=== PATIENT | female | born 1955 | race Caucasian/White ===

== ENCOUNTER 2021-02-10 16:47 | Emergency (ER) | payer MEDICAID, SELFPAY ==
[2021-02-10 16:49] VITALS: BP 180/90; PULSE 102; RESP 18; TEMP 37; O2SAT 95; BMI 25.0
--- NOTE | 2021-02-10 16:59 | ECG_ITS ---
[facility] Test Date: 2021-02-10 Pat Name: Lauren Mcmanus Department: Room: Gender: Female Rn Recruitment: : 1955 Requested By: Jl Morris Order Number: [id number] Paddy MD: Henry Good M.D. Measurements Intervals [place] Rate: 101 P: [place]: QRS: 88 QRSD: 85 T: 70 QT: 350 QTc: 455 Interpretive Statements Sinus TACHYCARDIA WITH A HEART RATE OF 101 BPM ABNORMAL RHYTHM ECG INTERPRETATION BASED ON A DEFAULT AGE OF 40 YEARS No previous ECG available for comparison Electronically Signed On 02-11-2021 14:40:30 CDT by Henry Good M.D. [id number]
--- NOTE | 2021-02-10 16:59 | CTR_ITS ---
PROCEDURE INFORMATION: Exam: CT Head Without Contrast Exam date and time: 02/10/2021 4:59 PM Age: 65 years old Clinical indication: Altered mental status/memory loss and other: PT stopped talking; Patient HX: PT has breast cancer and has recently stopped her chemo. ; Additional info: Headache TECHNIQUE: Imaging protocol: Computed tomography of the head without contrast. Radiation optimization: All CT scans at this facility use at least one of these dose optimization techniques: automated exposure control; mA and/or kV adjustment per patient size (includes targeted exams where dose is matched to clinical indication); or iterative reconstruction. COMPARISON: No relevant prior studies available. RADIATION DOSE METRICS: Total DLP (mGy-cm): 776.02 FINDINGS: Brain: Numerous targetoid lesions with surrounding vasogenic edema within the bilateral cerebellar hemispheres, left temporal lobe, right parietal lobe, left parietal lobe, and bilateral frontal lobes. No mass effect, midline shift, or brain herniation. Mild hypodensities in supratentorial periventricular and subcortical white matter, consistent with microangiopathy. No intracranial hemorrhage. No hyperdense artery. Cerebral ventricles: No ventriculomegaly. Paranasal sinuses: Visualized sinuses are unremarkable. No fluid levels. Mastoid air cells: Visualized mastoid air cells are well aerated. Bones/joints: Unremarkable. No acute fracture. Soft tissues: Unremarkable. CT/CT head wo con* [id number] IMPRESSION: 1. Numerous lesions within the cerebellum and bilateral cerebral hemispheres with surrounding vasogenic edema. This is consistent with metastatic breast cancer. Radiation Dose CTDIVOL = (mGy): DLP = 776.02 (mGy-cm)
--- NOTE | 2021-02-10 17:01 | CTR_ITS ---
PROCEDURE INFORMATION: Exam: CT Chest Without Contrast; Diagnostic Exam date and time: 02/10/2021 5:01 PM Age: 65 years old Clinical indication: Other: Abcess; Other: Weakness; Patient HX: PT has breast cancer and recently decided to stop chemo; Additional info: Abscess/metastatic disease TECHNIQUE: Imaging protocol: Diagnostic computed tomography of the chest without contrast. Radiation optimization: All CT scans at this facility use at least one of these dose optimization techniques: automated exposure control; mA and/or kV adjustment per patient size (includes targeted exams where dose is matched to clinical indication); or iterative reconstruction. COMPARISON: No relevant prior studies available. RADIATION DOSE METRICS: Total DLP (mGy-cm): 1240.71 FINDINGS: Thyroid: Thyroid lobes are symmetric. Lungs: 5 mm noncalcified pulmonary nodule in the left upper lobe apical segment on axial series 2, image 11 with slightly irregular borders is nonspecific. Right upper lobe pulmonary nodule anteriorly measuring 8 mm diameter on axial series 2, image 29. Circumscribed noncalcified pulmonary nodule in the right middle lobe measures 5 mm on axial series 2, image 38. No acute airspace consolidation. Negative for endobronchial obstruction. Pleural spaces: Unremarkable. No pneumothorax. No pleural effusion. Heart: Small volume pericardial effusion. No cardiac chamber dilation. Aorta: Unremarkable. No aortic aneurysm. Lymph nodes: Right axillary lymphadenopathy. Negative for mediastinal lymphadenopathy. Bones/joints: Unremarkable. No acute fracture. Soft tissues: Large fungating soft tissue mass of the inferior right breast. IMPRESSION: 1. Large fungating right breast soft tissue mass. 2. Right axillary lymphadenopathy. 3. Several small indeterminate pulmonary nodules. Metastatic lesions versus granulomas in the differential. Fleischner criteria not applicable secondary to known malignancy. PROCEDURE INFORMATION: Exam: CT Abdomen And Pelvis Without Contrast Exam date and time: 02/10/2021 5:01 PM Age: 65 years old Clinical indication: Other: Abcess; Other: Weakness; Patient HX: PT has breast cancer and recently decided to stop chemo; Additional info: Abscess/metastatic disease TECHNIQUE: Imaging protocol: Computed tomography of the abdomen and pelvis without contrast. Radiation optimization: All CT scans at this facility use at least one of these dose optimization techniques: automated exposure control; mA and/or kV adjustment per patient size (includes targeted exams where dose is matched to clinical indication); or iterative reconstruction. COMPARISON: No relevant prior studies available. RADIATION DOSE METRICS: Total DLP (mGy-cm): 1240.71 FINDINGS: Liver: Normal. No mass. Gallbladder and bile ducts: Normal. No calcified stones. No ductal dilation. Pancreas: Normal. No ductal dilation. Spleen: Normal. No splenomegaly. Adrenal glands: Normal. No mass. Kidneys and ureters: Normal. No hydronephrosis. Stomach and bowel: Unremarkable. No obstruction. No mucosal thickening. Appendix: No evidence of appendicitis. Intraperitoneal space: Unremarkable. No free air. No significant fluid collection. Vasculature: Unremarkable. No abdominal aortic aneurysm. Lymph nodes: Unremarkable. No enlarged lymph nodes. Urinary bladder: Unremarkable as visualized. Reproductive: Unremarkable as visualized. Bones/joints: Unremarkable. No acute fracture. Soft tissues: Unremarkable. CT/CT chest abd pel wo con IMPRESSION: 1. No acute findings. 2. Negative for abdominopelvic metastatic disease. Radiation Dose CTDIVOL = (mGy): DLP = 1240.71~1240.71 (mGy-cm)
--- NOTE | 2021-02-10 17:04 | W.ED.AMS ---
HPI - Altered Mental Status General: Chief Complaint: Altered Mental Status Stated Complaint: AMS, LETHARGIC Time Seen by Provider: 02/10/21 16:59 History of Present Illness: HPI narrative: This patient is a 65-year-old female who presents to the emergency department with altered mental status. Patient has a history of breast cancer and wishes no longer to have any chemotherapy or radiation therapy. Patient recently traveled to [place] from her residence around [facility] to take care of some financial affairs. Apparently while in [place] patient became sick and septic due to a fungating breast mass on the right breast. Patient was admitted to the hospital for septicemia. Patient sister found out that the patient was sick and presented to [place] and stayed with the patient until discharge patient was discharged to be traveling back to her home in [facility]. Upon arriving in [place] they decided to stop and rest at one of the patient's friends homes for today. States that the patient appeared to be in good spirits and eating well but today became confused and not eating. Sister states that the patient has had breast cancer since 2012. But patient sister states she was unaware of this breast mass in the right breast or the nature of this issue. Patient appears to be acutely confused on arrival. We will do medical evaluation treat as needed. MD complaint: confusion Onset (ago): hour(s) Timing confirmed by: family member Severity: moderate Consistency of symptoms: Getting Worse Associated symptoms: Reports depression Review of Systems General: Reports: 10 or more systems reviewed and unremarkable except in HPI and below Const: Reports: change in appetite and malaise; Denies: fever(s), chills, body aches or fatigue Eyes: Denies: change in vision or blurry vision ENMT: Denies: throat pain, hoarseness or mouth pain Card: Denies: chest pain, palpitations, irregular heart rhythm, edema, swelling of feet/ankles or lightheadedness Resp: Denies: dyspnea, productive cough, non-productive cough, wheezing or pain on inspiration GI: Denies: abdominal pain, nausea or vomiting : Denies: flank pain, difficulty voiding, dysuria, urinary frequency, urinary urgency or urinary hesitancy Musc: Denies: neck pain, back pain, extremity pain, extremity swelling, joint pain, joint swelling, joint redness, joint warmth or limited range of motion Skin/Breast: Denies: rash, pruritus, erythema or skin tenderness Neuro: Reports: lack of coordination and confusion; Denies: headache(s), numbness in extremities or weakness in extremities Psych: Reports: depression and change in appetite; Denies: anxiety Physical Exam Const: COMMON NORMALS: no acute distress, average body habitus, no limitations, healthy appearing and well nourished EXAM LIMITATIONS: altered mental status GENERAL APPEARANCE: well kempt HENMT: COMMON NORMALS: normocephalic, atraumatic, hearing grossly normal bilaterally, external ears normal, EAC's normal, TM's normal bilaterally, Normal external nose present, Normal nasal mucous membranes and turbinates present, moist oral mucous membranes, oropharynx normal, dentition normal and gingiva normal HEAD & SCALP: normocephalic and atraumatic NOSE: Normal external nose present and Normal nasal mucous membranes and turbinates present EXTERNAL EAR: Yes external ears normal EXTERNAL AUDITORY CANAL: EAC's normal TYMPANIC MEMBRANE: TM's normal bilaterally Neck/C-Spine: COMMON NORMALS: full ROM, no lymphadenopathy, supple, no meningeal signs, no JVD, Thyroid normal and No carotid bruits THYROID: Thyroid normal Chest: COMMONS NORMALS: normal inspection of the chest, normal palpation of entire chest wall, normal inspection of the breasts and normal palpation of the breasts CHEST: Yes abnormal inspection of the chest (Fungating chest mass right breast) other BREAST/AXILLA PALPATION: Yes abnormal palpation of the axilla and Yes abnormal palpation of the breast Chest images (female): 1. Fungating chest mass Resp: COMMON NORMALS: normal respiratory effort, No retractions, No use of accessory muscles, clear to auscultation bilaterally and percussion normal AUSCULTATION: clear to auscultation bilaterally PERCUSSION: percussion normal Cardio: COMMON NORMALS: no JVD, regular rate, regular rhythm, S1 normal heart sound present, S2 normal heart sound present, No gallops present (Cardio), No clicks present (Cardio), No murmurs present (Cardio), No rub (Cardio) and Peripheral pulses 2+ throughout RATE: regular rate RHYTHM: regular rhythm HEART SOUNDS: S1 normal heart sound present and S2 normal heart sound present PERIPHERAL PULSES: Peripheral pulses 2+ throughout GI: COMMON NORMALS: Normal to inspection, nondistended, normoactive bowel sounds present, Soft to palpation, non-tender, No hepatosplenomegaly present, no masses and no bruits PALPATION: Yes Soft to palpation and Yes No hepatosplenomegaly present : COMMON NORMALS: Yes no CVA tenderness, Yes normal external appearance, Yes normal appearance of the vagina, Yes normal appearance of the cervix, Yes normal bimanual exam, Yes No adnexal tenderness and Yes no masses BLADDER/KIDNEY EXAM: Yes no CVA tenderness BIMANUAL EXAM - VAGINA & UTERUS: Yes normal bimanual exam Back/Pelvis: COMMON NORMALS: no CVA tenderness, thoracic and lumbar spine normal to inspection, no thoracic nor lumbar tenderness, thoraco-lumbar ROM normal and straight leg raise negative bilaterally Extremity: COMMON NORMALS: normal to inspection, full ROM, capillary refill normal, no joint enlargement, no clubbing, cyanosis or edema, no calf tenderness and no pedal edema Neuro: COMMON NORMALS: CN's II-XII intact bilaterally, moves all extremities, no focal motor deficits and no sensory deficits noted SENSORIUM/ORIENTATION: Yes Orientation impaired MENINGEAL SIGNS: Yes no meningeal signs Psych: APPEARANCE: Yes well kempt Course Reevaluation(s): Reevaluation #1: I did discuss at length with patient and family at the bedside about 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 We did discuss patient's prognosis. Patient apparently and appears to have known of her poor prognosis from some time considering in October she quit seeing her oncologist and also stopped chemotherapy and radiation. Patient subsequently went traveled to [place] when she got sick with septicemia related to her breast lesion being infected. Patient does not appear to be septic today and appears to be stable. Patient appears to understand and answer yes or no but is not very forthcoming with information patient does wish to be seen and evaluated by hospice staff will contact local hospice service in the [place] area provide information to the patient and family and make arrangements for hospice to see the patient in her home outside of [place]. Patient and family will start hospice there then eventually will try to transfer to [place] to be closer to family. Patient's broken speech appears to be related to lesions in the brain and around the Broca's area. Patient and family state understanding wish to be go ahead and discharged home family will assist patient be transported back to her home in [facility]. Patient be discharged per their wish. Time: 18:43 Vital Signs: Vital signs: Vital Signs Temperature 98.6 F 02/10/21 16:49 Pulse Rate 104 H 02/10/21 17:19 Respiratory Rate 18 02/10/21 17:19 Blood Pressure 161/83 02/10/21 17:19 Pulse Oximetry 95 02/10/21 17:19 MDM - Altered Mental Status MDM Narrative: Medical decision making narrative: This patient is a 65-year-old female who presents to the emergency department with altered mental status. Patient has a history of breast cancer and wishes no longer to have any chemotherapy or radiation therapy. Patient recently traveled to [place] from her residence around [facility] to take care of some financial affairs. Apparently while in [place] patient became sick and septic due to a fungating breast mass on the right breast. Patient was admitted to the hospital for septicemia. Patient sister found out that the patient was sick and presented to [place] and stayed with the patient until discharge patient was discharged to be traveling back to her home in [facility]. Upon arriving in [place] they decided to stop and rest at one of the patient's friends homes for today. States that the patient appeared to be in good spirits and eating well but today became confused and not eating. Sister states that the patient has had breast cancer since 2012. But patient sister states she was unaware of this breast mass in the right breast or the nature of this issue. Patient appears to be acutely confused on arrival. We will do medical evaluation treat as needed. 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 We did discuss patient's prognosis. Patient apparently and appears to have known of her poor prognosis from some time considering in October she quit seeing her oncologist and also stopped chemotherapy and radiation. Patient subsequently went traveled to [place] when she got sick with septicemia related to her breast lesion being infected. Patient does not appear to be septic today and appears to be stable. Patient appears to understand and answer yes or no but is not very forthcoming with information patient does wish to be seen and evaluated by hospice staff will contact local hospice service in the [place] area provide information to the patient and family and make arrangements for hospice to see the patient in her home outside of [place]. Patient and family will start hospice there then eventually will try to transfer to [place] to be closer to family. Patient's broken speech appears to be related to lesions in the brain and around the Broca's area. Patient and family state understanding wish to be go ahead and discharged home family will assist patient be transported back to her home in [facility]. Patient be discharged per their wish. Lab Data: Labs: Lab Results 02/10/21 02/10/21 02/10/21 Range/Units 16:27 16:27 16:27 WBC 8.5 (4.0-10.0) 10^3/ uL RBC 4.18 (4.1-5.3) 10^6/u L Hgb 12.0 (11.5-15.3) g/dL Hct 35.5 L (37.0-47.0) % MCV 84.9 (81-99) fL MCH 28.7 (28.0-34.0) pg MCHC 33.8 (30.0-36.0) g/dL RDW 15.7 H (12.1-15.1) % Plt Count 298 (130-400) 10^3/c mm MPV 10.5 H (7.4-10.4) fL Neut % (Auto) 77.5 % Lymph % (Auto) 15.3 % [place] % (Auto) 6.2 % Eos % (Auto) 0.4 % Baso % (Auto) 0.1 % Neut # (Auto) 6.62 (1.8-7.7) 10^3/u L Lymph # (Auto) 1.3 (0.8-4.8) 10^3/u L [place] # (Auto) 0.5 (0.2-0.9) 10^3/u L Eos # (Auto) 0.0 (0.0-0.8) 10^3/u L Baso # (Auto) 0.0 (0.0-0.1) 10^3/u L Nucleated RBC % (a uto) 0 % Nucleated RBCs # 0.0 /100WBC PT 13.40 (12.1-14.9) SECO NDS INR 0.99 (0.8-1.2) APTT 26.1 (23.9-36.7) SECO NDS Specimen Type Sample Site ABG pH (7.35-7.45) ABG pCO2 (35-45) mmHg ABG pO2 (80.0-100.0) mmH g ABG HCO3 (22-26) mmol/L ABG O2 Saturation ABG Base Excess (-2.0-2.0) mmol/ L Miguel A Test A-a O2 Gradient (5-10) mmHg Hematocrit (37-47) % Hgb O2 Saturation (95-100) % Carboxyhemoglobin (0.4-20.1) %THgb Methemoglobin (0.4-1.5) % Total Hemoglobin (12-16) g/dL Ionized Calcium (1.1-1.4) mmol/L O2 Delivery Device Unified Communications Engineer ID Sodium 134 L (136-145) mmol/L Potassium 4.0 (3.5-5.1) mmol/L Chloride 95 L (98-107) mmol/L Carbon Dioxide 26 (22-29) mmol/L Anion Gap 17.0 (5-19) BUN 17 (8-23) mg/dL Creatinine 0.5 (0.5-0.9) mg/dL GFR Calculation 124.2 (90-130) mL/min Glucose 119 H (65-115) mg/dL Calculated Osmolal ity 281 L (285-295) mOsm/k g Lactic Acid (0.5-2.2) mmol/L Calcium 8.9 (8.5-10.5) mg/dL Total Bilirubin 0.5 (0.15-1.2) mg/dL AST 34 H (0-32) U/L ALT 75 H (0-33) U/L Alkaline Phosphata se 110 H (35-105) IU/L Ammonia (11-51) umol/L Troponin T Gen 5 n g/L (0-10) ng/L NT-Pro-B Natriuret Pep 311 H (0-125) pg/mL Total Protein 6.1 L (6.6-8.7) g/dL Albumin 3.7 (3.5-5.2) g/dL Globulin 2.4 (1.3-4.6) g/dL Lipase 45 (13-60) U/L Salicylates < 0.3 L (3-10) mg/dL Ethyl Alcohol < 10 (0-10) mg/dL 02/10/21 02/10/21 02/10/21 Range/Units 16:27 16:27 17:09 WBC (4.0-10.0) 10^3/ uL RBC (4.1-5.3) 10^6/u L Hgb (11.5-15.3) g/dL Hct (37.0-47.0) % MCV (81-99) fL MCH (28.0-34.0) pg MCHC (30.0-36.0) g/dL RDW (12.1-15.1) % Plt Count (130-400) 10^3/c mm MPV (7.4-10.4) fL Neut % (Auto) % Lymph % (Auto) % [place] % (Auto) % Eos % (Auto) % Baso % (Auto) % Neut # (Auto) (1.8-7.7) 10^3/u L Lymph # (Auto) (0.8-4.8) 10^3/u L [place] # (Auto) (0.2-0.9) 10^3/u L Eos # (Auto) (0.0-0.8) 10^3/u L Baso # (Auto) (0.0-0.1) 10^3/u L Nucleated RBC % (a uto) % Nucleated RBCs # /100WBC PT (12.1-14.9) SECO NDS INR (0.8-1.2) APTT (23.9-36.7) SECO NDS Specimen Type Arterial Sample Site Brachial, left ABG pH 7.46 H (7.35-7.45) ABG pCO2 40.9 (35-45) mmHg ABG pO2 80.3 (80.0-100.0) mmH g ABG HCO3 29.0 H (22-26) mmol/L ABG O2 Saturation 97.4 ABG Base Excess 4.7 H (-2.0-2.0) mmol/ L Miguel A Test N/a A-a O2 Gradient 2.4 L (5-10) mmHg Hematocrit 36.5 L (37-47) % Hgb O2 Saturation 95.5 (95-100) % Carboxyhemoglobin 1.1 (0.4-20.1) %THgb Methemoglobin 0.8 (0.4-1.5) % Total Hemoglobin 11.9 L (12-16) g/dL Ionized Calcium 1.3 (1.1-1.4) mmol/L O2 Delivery Device Room air Unified Communications Engineer ID Gd Sodium 137.0 (136-145) mmol/L Potassium 3.6 (3.5-5.1) mmol/L Chloride (98-107) mmol/L Carbon Dioxide (22-29) mmol/L Anion Gap (5-19) BUN (8-23) mg/dL Creatinine (0.5-0.9) mg/dL GFR Calculation (90-130) mL/min Glucose 124.0 H (65-115) mg/dL Calculated Osmolal ity (285-295) mOsm/k g Lactic Acid 0.8 (0.5-2.2) mmol/L Calcium (8.5-10.5) mg/dL Total Bilirubin (0.15-1.2) mg/dL AST (0-32) U/L ALT (0-33) U/L Alkaline Phosphata se (35-105) IU/L Ammonia (11-51) umol/L Troponin T Gen 5 n g/L 13 H (0-10) ng/L NT-Pro-B Natriuret Pep (0-125) pg/mL Total Protein (6.6-8.7) g/dL Albumin (3.5-5.2) g/dL Globulin (1.3-4.6) g/dL Lipase (13-60) U/L Salicylates (3-10) mg/dL Ethyl Alcohol (0-10) mg/dL 02/10/21 Range/Units 18:08 WBC (4.0-10.0) 10^3/ uL RBC (4.1-5.3) 10^6/u L Hgb (11.5-15.3) g/dL Hct (37.0-47.0) % MCV (81-99) fL MCH (28.0-34.0) pg MCHC (30.0-36.0) g/dL RDW (12.1-15.1) % Plt Count (130-400) 10^3/c mm MPV (7.4-10.4) fL Neut % (Auto) % Lymph % (Auto) % [place] % (Auto) % Eos % (Auto) % Baso % (Auto) % Neut # (Auto) (1.8-7.7) 10^3/u L Lymph # (Auto) (0.8-4.8) 10^3/u L [place] # (Auto) (0.2-0.9) 10^3/u L Eos # (Auto) (0.0-0.8) 10^3/u L Baso # (Auto) (0.0-0.1) 10^3/u L Nucleated RBC % (a uto) % Nucleated RBCs # /100WBC PT (12.1-14.9) SECO NDS INR (0.8-1.2) APTT (23.9-36.7) SECO NDS Specimen Type Sample Site ABG pH (7.35-7.45) ABG pCO2 (35-45) mmHg ABG pO2 (80.0-100.0) mmH g ABG HCO3 (22-26) mmol/L ABG O2 Saturation ABG Base Excess (-2.0-2.0) mmol/ L Miguel A Test A-a O2 Gradient (5-10) mmHg Hematocrit (37-47) % Hgb O2 Saturation (95-100) % Carboxyhemoglobin (0.4-20.1) %THgb Methemoglobin (0.4-1.5) % Total Hemoglobin (12-16) g/dL Ionized Calcium (1.1-1.4) mmol/L O2 Delivery Device Unified Communications Engineer ID Sodium (136-145) mmol/L Potassium (3.5-5.1) mmol/L Chloride (98-107) mmol/L Carbon Dioxide (22-29) mmol/L Anion Gap (5-19) BUN (8-23) mg/dL Creatinine (0.5-0.9) mg/dL GFR Calculation (90-130) mL/min Glucose (65-115) mg/dL Calculated Osmolal ity (285-295) mOsm/k g Lactic Acid (0.5-2.2) mmol/L Calcium (8.5-10.5) mg/dL Total Bilirubin (0.15-1.2) mg/dL AST (0-32) U/L ALT (0-33) U/L Alkaline Phosphata se (35-105) IU/L Ammonia 21 (11-51) umol/L Troponin T Gen 5 n g/L (0-10) ng/L NT-Pro-B Natriuret Pep (0-125) pg/mL Total Protein (6.6-8.7) g/dL Albumin (3.5-5.2) g/dL Globulin (1.3-4.6) g/dL Lipase (13-60) U/L Salicylates (3-10) mg/dL Ethyl Alcohol (0-10) mg/dL Imaging Data^: CT Head: Attestation: I personally reviewed and interpreted this imaging study as follows: Radiologist's impression: INDINGS: Brain: Numerous targetoid lesions with surrounding vasogenic edema within the bilateral cerebellar hemispheres, left temporal lobe, right parietal lobe, left parietal lobe, and bilateral frontal lobes. No mass effect, midline shift, or brain herniation. Mild hypodensities in supratentorial periventricular and subcortical white matter, consistent with microangiopathy. No intracranial hemorrhage. No hyperdense artery. Cerebral ventricles: No ventriculomegaly. Paranasal sinuses: Visualized sinuses are unremarkable. No fluid levels. Mastoid air cells: Visualized mastoid air cells are well aerated. Bones/joints: Unremarkable. No acute fracture. Soft tissues: Unremarkable. CT/CT head wo con* [id number] IMPRESSION: 1. Numerous lesions within the cerebellum and bilateral cerebral hemispheres with surrounding vasogenic edema. This is consistent with metastatic breast cancer. CT chest abdomen pelvis: Attestation: I personally reviewed and interpreted this imaging study as follows: Radiologist's impression: FINDINGS: Thyroid: Thyroid lobes are symmetric. Lungs: 5 mm noncalcified pulmonary nodule in the left upper lobe apical segment on axial series 2, image 11 with slightly irregular borders is nonspecific. Right upper lobe pulmonary nodule anteriorly measuring 8 mm diameter on axial series 2, image 29. Circumscribed noncalcified pulmonary nodule in the right middle lobe measures 5 mm on axial series 2, image 38. No acute airspace consolidation. Negative for endobronchial obstruction. Pleural spaces: Unremarkable. No pneumothorax. No pleural effusion. Heart: Small volume pericardial effusion. No cardiac chamber dilation. Aorta: Unremarkable. No aortic aneurysm. Lymph nodes: Right axillary lymphadenopathy. Negative for mediastinal lymphadenopathy. Bones/joints: Unremarkable. No acute fracture. Soft tissues: Large fungating soft tissue mass of the inferior right breast. IMPRESSION: 1. Large fungating right breast soft tissue mass. 2. Right axillary lymphadenopathy. 3. Several small indeterminate pulmonary nodules. Metastatic lesions versus granulomas in the differential. Fleischner criteria not applicable secondary to known malignancy. PROCEDURE INFORMATION: Exam: CT Abdomen And Pelvis Without Contrast Exam date and time: 02/10/2021 5:01 PM Age: 65 years old Clinical indication: Other: Abcess; Other: Weakness; Patient HX: PT has breast cancer and recently decided to stop chemo; Additional info: Abscess/metastatic disease TECHNIQUE: Imaging protocol: Computed tomography of the abdomen and pelvis without contrast. Radiation optimization: All CT scans at this facility use at least one of these dose optimization techniques: automated exposure control; mA and/or kV adjustment per patient size (includes targeted exams where dose is matched to clinical indication); or iterative reconstruction. COMPARISON: No relevant prior studies available. RADIATION DOSE METRICS: Total DLP (mGy-cm): 1240.71 FINDINGS: Liver: Normal. No mass. Gallbladder and bile ducts: Normal. No calcified stones. No ductal dilation. Pancreas: Normal. No ductal dilation. Spleen: Normal. No splenomegaly. Adrenal glands: Normal. No mass. Kidneys and ureters: Normal. No hydronephrosis. Stomach and bowel: Unremarkable. No obstruction. No mucosal thickening. Appendix: No evidence of appendicitis. Intraperitoneal space: Unremarkable. No free air. No significant fluid collection. Vasculature: Unremarkable. No abdominal aortic aneurysm. Lymph nodes: Unremarkable. No enlarged lymph nodes. Urinary bladder: Unremarkable as visualized. Reproductive: Unremarkable as visualized. Bones/joints: Unremarkable. No acute fracture. Soft tissues: Unremarkable. CT/CT chest abd pel wo con IMPRESSION: 1. No acute findings. 2. Negative for abdominopelvic metastatic disease. Radiation Dose CTDIVOL = (mGy): DLP = 1240.71~1240.71 (mGy-cm) EKG Data^: EKG 1: Attestation: I personally reviewed and interpreted this EKG as follows: EKG interpretation date: 02/10/21 EKG interpretation time: 17:10 Prior EKG tracings: not available for review Interpretation: Atrial flutter heart rate 101 Discharge Plan Discharge Patient Disposition: Home Clinical Impression: Cancer of right breast metastatic to brain, Counseling regarding end of life decision making Condition: Stable Prescriptions: No Action No Known Home Medications RF: 0 Discharge Orders: Discharge ED (Routine); Ordered 02/10/21 Ordered By: Jl Morris Discharge Diet: Advance as tolerated Discharge Activity: Resume usual activity Patient Instructions: Opioid Safety Activity Restrictions/Additional Instructions: Follow-up with hospice services that staff provides you their contact information. Someone from the hospice service should contact you by telephone. Make sure hospital staff has your full contact information. If you feel the need to return to the emergency department please do so. Coding Level of Care Code ED [employer] for [facility] Fwd Exam Comprehensive
[2021-02-10 17:18] LABS: Basophils % 0.1 %; Eosinophils % 0.4 %; Hematocrit 35.5 % (37.0-47.0); Lymphocytes # 1.3 10^3/uL (0.8-4.8); Lymphocytes % 15.3 %; Mean Corpuscular HGB Conc 33.8 g/dL (30.0-36.0); Mean Corpuscular Hemoglobin 28.7 pg (28.0-34.0); Mean Corpuscular Volume 84.9 fL (81-99); Mean Platelet Volume 10.5 fL (7.4-10.4); Monocytes # 0.5 10^3/uL (0.2-0.9); Monocytes % 6.2 %; Neutrophils # 6.62 10^3/uL (1.8-7.7); Neutrophils % 77.5 %; Nucleated Red Blood Cells % 0 %; Platelet Count 298 10^3/cmm (130-400); Red Blood Count 4.18 10^6/uL (4.1-5.3); Red Cell Distribution Width 15.7 % (12.1-15.1); White Blood Count 8.5 10^3/uL (4.0-10.0)
[2021-02-10 17:19] VITALS: BP 161/83; PULSE 104; RESP 18; O2SAT 95
[2021-02-10 17:25] LABS: ABG PH Result 7.46 (7.35-7.45); Arterial Blood Gas Hematocrit 36.5 % (37-47); Blood Gas Operator Identificat GD; Blood Gas Sample Type Arterial; Oxygen Device ROOM AIR; Total Hemoglobin 11.9 g/dL (12-16)
[2021-02-10 17:36] LABS: ABG PCO2 40.9 mmHg (35-45); Alveolar-Arterial Oxygen Gradi 2.4 mmHg (5-10); Base Excess ABG 4.7 mmol/L (-2.0-2.0); Blood Gas Sample Site Brachial, left; Carboxyhemoglobin 1.1 %THgb (0.4-20.1); HGB O2 Sat 95.5 % (95-100); Ionized Calcium Level - ABG 1.3 mmol/L (1.1-1.4); Methemoglobin 0.8 % (0.4-1.5); Oxygen Saturation ABG 97.4; PO2 ABG 80.3 mmHg (80.0-100.0); Potassium Level - ABG 3.6 mmol/L (3.5-5.0)
[2021-02-10 17:45] LABS: Lactic Sepsis W/Reflex 0.8 mmol/L (0.5-2.2)
[2021-02-10 17:47] LABS: INR 0.99 (0.8-1.2); Partial Thromboplastin Time 26.1 SECONDS (23.9-36.7)
[2021-02-10 17:49] LABS: Troponin T (5th) Once 13 ng/L (0-10)
[2021-02-10 17:55] LABS: Alanine Aminotransferase 75 U/L (0-33); Albumin Level 3.7 g/dL (3.5-5.2); Alkaline Phosphatase 110 IU/L (35-105); Blood Urea Nitrogen 17 mg/dL (8-23); Calcium 8.9 mg/dL (8.5-10.5); Carbon Dioxide 26 mmol/L (22-29); Chloride 95 mmol/L (98-107); Globulin 2.4 g/dL (1.3-4.6); Glomerular Filtration Rate 124.2 mL/min (90-130); Glucose 119 mg/dL (65-115); Lipase 45 U/L (13-60); NT Pro B Type Natriuretic Pept 311 pg/mL (0-125); Osmolality Calculated 281 mOsm/kg (285-295); Sodium 134 mmol/L (136-145); Total Bilirubin 0.5 mg/dL (0.15-1.2); Total Protein 6.1 g/dL (6.6-8.7)
[2021-02-10 18:01] LABS: Alcohol Level < 10 mg/dL (0-10); Salicylate < 0.3 mg/dL (3-10)
[2021-02-10 18:02] LABS: Aspartate Amino Transferase 34 U/L (0-32)
[2021-02-10 18:37] LABS: Ammonia 21 umol/L (11-51)
[2021-02-10 20:04] VITALS: BP 166/73; PULSE 86; RESP 18; O2SAT 95
[2021-02-10 20:36] LABS: Add Urine Microscopic? NO; Charge for UA Resulting for Rev
[2021-02-10 20:41] LABS: Bilirubin Urine Neg (Negative); Blood Urine Neg (Negative); Glucose Urine UA 2+ (Normal); Ketones Urine 2+ (Negative); Leukocyte Esterase Urine Negative (Negative); Nitrate Urine Negative (Negative); Protein Urine Neg (Negative); Specific Gravity, Urine 1.015 (1.005-1.030); Urine Appearance Clear (CLEAR); Urine Color Yellow (Yellow); Urobilinogen Urine Neg (Negative); pH Urine 6.5 (5-7)
[2021-02-10 20:46] LABS: Amphetamines Screen Urine Negative (Negative); Barbiturates Screen Urine Positive (Negative); Benzodiazepines Screen Urine Negative (Negative); Cocaine Screen Urine Negative (Negative); Opiate Screen Urine Negative (Negative); PCP Screen Urine Negative (Negative); THC Screen Urine Positive (Negative)
[2021-02-10 21:45] VITALS: PULSE 72; RESP 17; O2SAT 95
== END 2021-02-10 21:45 | disposition home or self-care (01) ==
PROVIDERS: Emergency Provider Emergency Medicine
DX: C50.911 Malignant neoplasm of unspecified site of right female breast (principal); C79.31 Secondary malignant neoplasm of brain
CPT/HCPCS: 36600; 70450; 71250; 74176; 80051; 80053; 80306; 80307; 81003; 82140; 82330; 82805; 83605; 83690; 83880; 84484; 85025; 85610; 85730; 87040; 93005; 99283